=== PATIENT | male | born 1955 | race Caucasian/White ===

== ENCOUNTER 2017-08-09 08:05 | Day surgery (SDC) | payer BC ==
[2017-08-06 14:11] VITALS: BMI 25.3
[~2017-08-09 08:05] MED LIST: LACTATED RINGERS 1,000 ML IV SCH; LIDOCAINE 1% 20 ML VIAL (10MG/ML) FOR IV START INTRADERMA PRN
[2017-08-09 08:28] VITALS: RESP 16; TEMP 98.6
[2017-08-09] MEDS ORDERED: PROPOFOL 10 MG/ML 20 ML VIAL IV ONE (08:40)
--- NOTE | 2017-08-09 08:42 | P.GSHP ---
History of Present Illness H&P Date: 08/09/17 Chief Complaint: Screening colonoscopy 's is a 62-year-old male referred from Dr. lowry. Patient presents today for screening colonoscopy. He has never had a colonoscopy before. He denies a significant GI complaints. Past Medical History Additional Past Medical History / Comment(s): Hx kidney stones History of Any Multi-Drug Resistant Organisms: None Reported Past Surgical History: Appendectomy Past Anesthesia/Blood Transfusion Reactions: Motion Sickness Smoking Status: Never smoker - Past Family History Father Family Medical History: Cancer Additional Family Medical History / Comment(s): prostate Brother(s) Family Medical History: Cancer Additional Family Medical History / Comment(s): prostate Medications and Allergies Home Medications Medication Instructions Recorded Confirmed Type Ibuprofen [Motrin] 800 mg PO Q6HR PRN #20 tab 01/05/14 08/09/17 Rx Acetaminophen Tab [Tylenol Tab] 325 - 650 mg PO Q4H PRN 08/06/17 08/09/17 History Allergies Allergy/AdvReac Type Severity Reaction Status Date / Time No Known Allergies Allergy Verified 08/09/17 08:13 Surgical - Exam Vital Signs Temp Pulse Resp BP Pulse Ox 98.6 F 72 16 126/71 95 08/09/17 08:18 08/09/17 08:18 08/09/17 08:18 08/09/17 08:18 08/09/17 08:18 - General well developed, no distress - Eyes PERRL - ENT normal pinna - Neck no masses - Respiratory normal expansion - Cardiovascular Rhythm: regular - Abdomen Abdomen: soft, non tender Assessment and Plan Assessment: We will perform screening colonoscopy.
--- NOTE | 2017-08-09 08:58 | P.OP ---
Date of Procedure: 08/09/17 Preoperative Diagnosis: Screening colonoscopy Postoperative Diagnosis: Diverticulosis of sigmoid and left colon Procedure(s) Performed: Colonoscopy Anesthesia: MAC Surgeon: Jorge Santos Pathology: none sent Condition: stable Disposition: PACU Description of Procedure: The patient's placed on the endoscopy table lateral position. He received IV sedation. The digital rectal exam was performed which revealed no abnormalities. The prostate was symmetric without nodules. The flexible colonoscope was then placed patient anus and passed throughout the entire colon. The ileocecal valve was visualized. The cecum, ascending and transverse colon appeared normal. In the descending and sigmoid colonthere was moderate diverticular changes. Scope was then brought back the rectum and this appeared normal. Scope was withdrawn for patient.
[2017-08-09 09:34] VITALS: BP 112/72; PULSE 55
== END 2017-08-09 09:46 | disposition home or self-care (01) ==
LOC: ORWHC2ENDO 08:05
PROVIDERS: ATTEND Surgery
DX: Z12.11 Encounter for screening for malignant neoplasm of colon (principal); K57.30 Diverticulosis of large intestine without perforation or abscess without bleeding; Z87.442 Personal history of urinary calculi; Z80.42 Family history of malignant neoplasm of prostate
CPT/HCPCS: J2704; G0121; 45378

== ENCOUNTER 2017-09-13 12:22 | Day surgery (SDC) | payer BC ==
[2017-09-13 13:12] VITALS: BP 133/79; PULSE 67; RESP 16; TEMP 98.2
--- NOTE | 2017-09-13 14:26 | US ---
Discontinued thyroid fine-needle aspiration HISTORY: Abnormal thyroid ultrasound Correlation from outside thyroid ultrasound report. Real-time ultrasound performed of the thyroid gla nd. Discrete nodule is not identified. IMPRESSION: Aborted thyroid biopsy, no discrete nodule. Reconsult as necessary.
== END 2017-09-13 14:15 | disposition home or self-care (01) ==
LOC: RADPROMAIN 12:22
PROVIDERS: ATTEND Family Medicine
DX: E04.1 Nontoxic single thyroid nodule (principal); Z53.8 Procedure and treatment not carried out for other reasons
CPT/HCPCS: 76536

== ENCOUNTER → 2019-04-03 | Outpatient (CLI) | payer BC ==
--- NOTE | 2019-04-03 08:41 | US ---
EXAMINATION TYPE: US prostate transrectal DATE OF EXAM: 04/03/2019 COMPARISON: CT abdomen and pelvis 2011 CLINICAL HISTORY: N13.8 Benign prostatic hypertrophy without marcos. This examination was performed using the transrectal probe. EXAM MEASUREMENTS: Gland Size: 3.9 x 2.1x 1.3 cm Volume: 17.6 Predicted PSA: 2.1 Actual PSA (if available):0.4 normal values average size = 4 x 3.5 x 2.5 cm Normal-sized prostate is present with marked heterogeneity particularly of the transitional zone. The re is a 6 mm hypoechoic 2 anechoic right mid zone round area. Suspect small nodule. IMPRESSION: As above, normal size prostate with possible right mid zone peripheral nodule. Consider targeted ultrasound sampling. Predicted PSA = volume x 0.12 ng/ml Calculated Volume = 0.5236 x L x W x H
== END | disposition home or self-care (01) ==
LOC: RADUSWWP 07:27
PROVIDERS: ATTEND Family Medicine
DX: N13.8 Other obstructive and reflux uropathy (principal)
CPT/HCPCS: 76872